=== PATIENT | male | born 1980 | race Two or more races ===

== ENCOUNTER 2025-05-04 20:15 | Emergency (ER) | payer OTHER ==
[~2025-05-04] VITALS: Ht 180.3 cm; Wt 76.2 kg
[2025-05-04] MEDS ORDERED: ONDANSETRON HCL 2 MG/ML VIAL IV ONE (21:00)
[2025-05-04] MEDS ORDERED: 0.9 % SODIUM CHLORIDE 1,000 ML IV ONE (21:00)
[2025-05-04] MEDS ORDERED: FAMOtidine 10 MG/ML (4ML VIAL) IV ONE (21:00)
[2025-05-04] MEDS ORDERED: FAMOTIDINE/PF 20 MG/2 ML VIAL ONE (21:58)
[2025-05-04] MEDS ORDERED: ONDANSETRON HCL 2 MG/ML VIAL ONE (21:58)
[2025-05-04 22:07] LABS: BASO % 0.0 % (0.1-1.2); EOS # 0.00 (0.04-0.54); EOS % 0.0 % (0.7-7.0); LYMPH # 0.58 (1.18-3.74); LYMPH % 11.5 % (19.3-53.1); MEAN PLATELET VOLUME 8.60 fl (9.4-12.4); MONO # 0.37 (0.24-0.82); MONO % 7.3 % (4.7-12.5); NEUT # 4.09 (1.56-6.13); NEUT % 81.0 % (34.0-71.1); RED CELL DISTRIBUTION WIDTH 12.9 % (11.6-14.4)
[2025-05-04 22:43] LABS: ALT/SGPT 30.0 U/L (12-78); AST/SGOT 19.0 U/L (15-37); BILIRUBIN TOTAL 1.57 mg/dL (0.3-1.2); BUN CREA RATIO 10.0 (7.0-25.0); CREATININE SERUM 1.11 mg/dL (0.70-1.30); GFR 71.01; GLOBULINA 3.4 G/DL (2.4-3.5); GLUCOSE FASTING 132.0 mg/dL (65-100); OSMOLALITY SERUM 283.0 MOSM/KG (275-295)
[2025-05-04 23:15] LABS: URINE APPEARANCE Clear; URINE BILIRRUBIN Negative (NEGATIVE); URINE BLOOD Small; URINE COLOR Yellow; URINE GLUCOSE Negative (NEGATIVE); URINE KETONE 15 (NEGATIVE); URINE LEUKOCYTE Negative; URINE NITRATE Negative; URINE PROTEIN 30 (NEGATIVE); URINE UROBILINOGEN 1.0 E.U./dl
[2025-05-04 23:19] LABS: URINE EPITHELIAL CELLS 7.6 uL (0.0-38.8); URINE RBC 135.5 uL (0.0-20.8); URINE WBC 8.3 uL (0.0-23.2)
[2025-05-04 23:28] LABS: TYPE CELLS SQUAMOUS; URINE BACTERIA 1.2 uL (0.0-1933); URINE CAST 0.29 uL (0.0-1.40)
[2025-05-05] MEDS ORDERED: KETOROLAC TROMETHAMINE 30 MG VIAL IV ONE (01:30)
[2025-05-05] MEDS ORDERED: KETOROLAC TROMETHAMINE 30 MG VIAL ONE (01:34)
[2025-05-05] MEDS ORDERED: ZOFRAN8 MG PO (01:55)
[2025-05-05] MEDS ORDERED: PEPCID40 MG PO (01:55)
[2025-05-05] MEDS ORDERED: CIPRO500 MG PO (01:55)
== END 2025-05-05 02:13 | disposition home or self-care (01) ==
LOC: ER 20:15
PROVIDERS: Preventive Medicine Public Health & General Preventive Medicine
DX: K52.89 Other specified noninfective gastroenteritis and colitis (principal); A05.9 Bacterial foodborne intoxication, unspecified; E86.0 Dehydration